=== PATIENT | female | born 1975 | race Caucasian/White ===

== ENCOUNTER 2017-01-29 15:08 | Inpatient (IN) | payer BC ==
[~2017-01-29] VITALS: Ht 167.6 cm; Wt 91.6 kg
[~2017-01-29 15:08] MED LIST: PREN0.01 PO; PROBCAP4 PO; SENN1TAB11 PO; SLOW50TA PO; VITA-13; VITA100017 PO
[2017-02-13] MEDS ORDERED: EPIDURAL-DIPHENHYDRAMINE HCL 50 MG CAP PO PRN (07:25)
[2017-02-13] MEDS ORDERED: EPIDURAL-NO SYSTEMIC NARCOTICS XX PRN (07:25)
[2017-02-13] MEDS ORDERED: EPIDURAL-NALOXONE HCL 0.4 MG/ML AMP IV PRN (07:25)
[2017-02-13] MEDS ORDERED: EPIDURAL-DO NOT ADMINISTER ANTICOAGULANTS XX PRN (07:25)
[2017-02-13] MEDS ORDERED: EPIDURAL-DIPHENHYDRAMINE HCL 50 MG/ML VIAL IV PUSH PRN (07:25)
[2017-02-13] MEDS ORDERED: LACTATED RINGER'S 1000 ML IV SCH (10:00)
[2017-02-13] MEDS ORDERED: CITRIC ACID-SODIUM CITRATE LIQ 30 ML UDC PO SCH (10:00)
[2017-02-13] MEDS ORDERED: ceFAZolin 2 GM PREMIX 50 ML IV SCH (10:00)
[2017-02-13] MEDS ORDERED: LACTATED RINGER'S 1000 ML IV ONE (10:00)
[2017-02-13 10:16] LABS: AUTOMATED NEUTROPHIL # 7.5 TH/MM3 (1.8-7.7); BASOPHIL % 0.4 % (0.0-2.0); EOSINOPHIL # 0.1 TH/MM3 (0-0.4); EOSINOPHIL % 1.2 % (0.0-4.0); HEMATOCRIT 28.4 % (35.0-46.0); HEMO FLAGS DIFF FINAL; LYMPH % 17.8 % (9.0-44.0); LYMPHOCYTE # 1.8 TH/MM3 (1.0-4.8); MEAN CELL VOLUME 84.1 FL (80.0-100.0); MEAN CORPUSCULAR HEMOGLOBIN 27.3 PG (27.0-34.0); MEAN CORPUSCULAR HGB CONC 32.5 % (32.0-36.0); MONO % 8.1 % (0.0-8.0); NEUT % 72.5 % (16.0-70.0); PLATELET COUNT 254 TH/MM3 (150-450); RED BLOOD COUNT 3.38 MIL/MM3 (4.00-5.30); RED CELL DISTRIBUTION WIDTH 17.2 % (11.6-17.2); WHITE BLOOD COUNT 10.4 TH/MM3 (4.0-11.0)
[2017-02-13 10:31] LABS: BACTERIA, URINE MOD /hpf; BLOOD, URINE NEG (NEG); CALCIUM OXALATE CRYSTALS,URINE MOD /hpf; GLUCOSE,URINE NEG (NEG); HYALINE CAST, URINE 2 /lpf (RARE); KETONE, URINE NEG (NEG); MUCUS URINE FEW /lpf (OCC); NITRITE,URINE NEG (NEG); SQUAMOUS EPITHELIAL CELL URINE 48 /hpf (0-5); TRANSITIONAL EPI CELLS, URINE <1 /hpf; URINE COLOR YELLOW (YELLW/STRAW)
[2017-02-13 10:40] LABS: COMMENT (UR) CULTURE INDICATED; CULTURE IF INDICATED CULTURE INDICATED
[2017-02-13] MEDS ORDERED: OXYTOCIN 10 UNIT/ML AMP ONE (11:15)
[2017-02-13] MEDS ORDERED: DICLOFENAC SODIUM 37.5 MG/ML VIAL IV PUSH ONE (11:15)
[2017-02-13 12:09] LABS: BLOOD GAS BASE EXCESS -0.1 mmol/L (-2-2); BLOOD GAS O2 HGB SATURATION 13 % (90-100); CORD BLOOD GAS HCO3 26 mmol/L (21-29); CORD BLOOD GAS PCO2 57 mmHG (34-78); CORD BLOOD GAS PH 7.28 (7.14-7.42); CORD BLOOD GAS PO2 12 mmHG (3.0-40.0); DRAW SITE CORD BLOOD; STAT NO
--- NOTE | 2017-02-13 12:54 | PD.OB.DELI ---
Procedure Note Section Procedure Performed by Ry Natarajan Procedure: Repeat Low Transverse Sec Indication for delivery: Desired elective repeat , malposition Informed consent obtained: For anesthesia, For procedure Confirmed correct: Patient, Procedure, Site, Time-out taken Anesthesia: Spinal Medication prior to procedure: As documented in eMAR Monitoring during procedure: Blood pressure monitoring, electronic device monitor, doppler, Pulse oximetry Urinary catheter: Inserted using sterile technique, To dependent drainage Sterile preparation: Duraprep Position: Supine with wedge to right side, Supine with safety belt applied Operative Features Skin Incision: Pfannenstiel Uterine Incision: J-shaped Membranes Ruptured: Artificially Presentation: Transverse lie (unstable,small parts down) Delivery of infant: Assisted (internal cephalic version,vacuum x1 pull) : Female One Minute : 1 Five Minute : 8 Status of infant: Viable, Cord blood, Umbilical cord (Cord ABG pH 7.28), Nursery present, Resuscitation required Placenta delivered: Intact Medications: Antibiotics, Oxytocin Estimated blood loss: 1000cc Procedure tolerated: Well Maternal Condition: Stable Baby Complications: Respiratory distress, Other (difficult delivery due to unstable position) Condition: Stable Ry Natarajan MD Feb 13, 2017 12:54
[2017-02-13] MEDS ORDERED: MORPHINE SULFATE PF 5 MG/10 ML VIAL ONE (12:56)
[2017-02-13] MEDS ORDERED: ONDANSETRON HCL 4 MG/2 ML VIAL IV PUSH PRN (13:00)
[2017-02-13] MEDS ORDERED: KETOROLAC TROMETHAMINE 60 MG/2 ML (IM) VIAL IM PRN (13:00)
[2017-02-13] MEDS ORDERED: oxyCODONE/ACETAMINOPHEN 5 MG/325 MG TAB PO PRN (13:00)
[2017-02-13] MEDS ORDERED: OXYTOCIN 30 UNITS-500ML PREMIX 500 ML IV ONE (13:00)
[2017-02-13] MEDS ORDERED: SODIUM CHLORIDE 0.9% FLUSH 5 ML FLUSH IV FLUSH PRN (13:00)
[2017-02-13] MEDS ORDERED: ACETAMINOPHEN 1000 MG/100 ML VIAL IV ONE ×2 (13:08→14:00)
[2017-02-13] MEDS ORDERED: DEXAMETHASONE SOD PHOS 4 MG/ML VIAL IV ONE (13:32)
[2017-02-13] MEDS ORDERED: ONDANSETRON HCL 4 MG/2 ML VIAL IV PUSH ONE (13:32)
[2017-02-13] MEDS ORDERED: fentaNYL CITRATE 250 MCG/5 ML AMP IV ONE (13:32)
[2017-02-13 13:42] LABS: HEMATOCRIT 24.1 % (35.0-46.0); MEAN CELL VOLUME 84.1 FL (80.0-100.0); MEAN CORPUSCULAR HEMOGLOBIN 27.4 PG (27.0-34.0); MEAN CORPUSCULAR HGB CONC 32.6 % (32.0-36.0); PLATELET COUNT 224 TH/MM3 (150-450); RED BLOOD COUNT 2.87 MIL/MM3 (4.00-5.30); RED CELL DISTRIBUTION WIDTH 17.3 % (11.6-17.2); REVIEW FLAG FINAL; WHITE BLOOD COUNT 11.9 TH/MM3 (4.0-11.0)
[2017-02-13 14:45] VITALS: BP 118/74; PULSE 99; RESP 16; TEMP 97.3
[2017-02-13] MEDS: DOCUSATE SODIUM 50 MG/SENNA 8.6 MG TAB PO PRN (20:40)
[2017-02-13] MEDS: SODIUM CHLORIDE 0.9% FLUSH 10 ML FLUSH IV FLUSH SCH (20:40)
[2017-02-13] MEDS: LACTATED RINGER'S 1000 ML INJ 1,000 ML IV SCH (20:42)
[2017-02-13] MEDS: oxyCODONE/ACETAMINOPHEN 5 MG/325 MG TAB PO PRN (20:42)
[2017-02-13] MEDS ORDERED: OXYTOCIN 30 UNITS-500ML PREMIX 500 ML IV PRN (23:00)
[2017-02-14] MEDS: oxyCODONE/ACETAMINOPHEN 5 MG/325 MG TAB PO PRN ×3 (02:16→22:43)
[2017-02-14] MEDS: LACTATED RINGER'S 1000 ML INJ 1,000 ML IV SCH (03:54)
[2017-02-14 06:13] LABS: AUTOMATED NEUTROPHIL # 10.2 TH/MM3 (1.8-7.7); BASOPHIL % 0.3 % (0.0-2.0); EOSINOPHIL # 0.1 TH/MM3 (0-0.4); EOSINOPHIL % 0.5 % (0.0-4.0); HEMATOCRIT 21.9 % (35.0-46.0); HEMO FLAGS DIFF FINAL; LYMPH % 14.6 % (9.0-44.0); LYMPHOCYTE # 1.9 TH/MM3 (1.0-4.8); MEAN CELL VOLUME 83.2 FL (80.0-100.0); MEAN CORPUSCULAR HEMOGLOBIN 27.8 PG (27.0-34.0); MEAN CORPUSCULAR HGB CONC 33.4 % (32.0-36.0); MONO % 7.2 % (0.0-8.0); NEUT % 77.4 % (16.0-70.0); PLATELET COUNT 198 TH/MM3 (150-450); RED BLOOD COUNT 2.63 MIL/MM3 (4.00-5.30); RED CELL DISTRIBUTION WIDTH 17.5 % (11.6-17.2); WHITE BLOOD COUNT 13.2 TH/MM3 (4.0-11.0)
[2017-02-14 07:36] VITALS: BP 126/81; PULSE 83; RESP 16; TEMP 97.6
--- NOTE | 2017-02-14 08:35 | HHI.OB ---
Subjective Post Operative Day: 1 Remarks doing well, will start iron po TID Objective Vitals/I&O Vital Signs Date Time Temp Pulse Resp B/P Pulse Ox O2 Delivery O2 Flow Rate FiO2 02/14/17 07:36 97.6 83 16 126/81 02/13/17 14:45 97.3 99 16 118/74 Result Diagram: 02/14/17 0502 Objective Remarks GENERAL: Well-nourished, well-developed patient. CARDIOVASCULAR: Regular rate and rhythm without murmurs, gallops, or rubs. RESPIRATORY: Breath sounds equal bilaterally. No accessory muscle use. ABDOMEN/GI: Abdomen soft, non-tender, bowel sounds present. Incision: dressing Clean, dry and intact. Fundus: Firm, non-tender at umbilicus. GENITOURINARY: Light to moderate bleeding. EXTREMITIES: No cyanosis or edema, non-tender, without signs of DVT. Medications and IVs Current Medications Medications (Trade) Dose Ordered Sig/Sunni Route Start Time Stop Time Status Last Admin (Lr 1000 ml Inj) 1,000 ml @ 100 mls/hr Q10H IV 02/13/17 17:54 02/14/17 13:53 02/13/17 20:42 (NS Flush) 2 ml BID IV FLUSH 02/13/17 13:00 (NS Flush) 2 ml UNSCH PRN IV FLUSH 02/13/17 13:00 (Mylicon Chew) 80 mg QID PRN PO 02/13/17 13:00 (Toradol Inj) 30 mg Q6H PRN IM 02/13/17 13:00 02/14/17 12:59 (Percocet 5-325 Mg) 1 tab Q4H PRN PO 02/13/17 13:00 02/14/17 02:16 (Percocet 5-325 Mg) 2 tab Q4H PRN PO 02/13/17 13:00 (Edel-Colace) 2 tab Q12H PRN PO 02/13/17 13:00 02/13/17 20:40 (M-M-R Ii Inj) 0.5 ml ONCE ONCE SQ 02/14/17 16:00 02/14/17 16:01 (Boostrix Inj) 0.5 ml ONCE ONCE IM 02/14/17 16:00 02/14/17 16:01 (Zofran Inj) 4 mg Q6H PRN IV PUSH 02/13/17 13:00 Assessment/Plan Problem List: (1) S/P repeat low transverse Assessment and Plan POD#1 s/o repeat LSTC, anemic pt wants oral iron supplement no dizziness Discharge Planning routine Attending Attestation pt seen by Marianna Dixon MD Feb 14, 2017 08:35
--- NOTE | 2017-02-14 08:57 | HHI.DS ---
Admission Date Feb 13, 2017 at 08:55 Admitting Diagnosis Diagnosis: : Repeat Reason: Repeat, malpresentation : Female Pt Condition on Discharge: Good Discharge Disposition: Discharge Home Discharge Instructions Diet Instructions: As Tolerated, No Restrictions Activities You Can Perform: Shower Only-No Bath Activities to Avoid: Prolonged Standing, Strenuous Activity, Driving, Sexual Activity Ry Natarajan MD Feb 14, 2017 08:57
[2017-02-14] MEDS: DOCUSATE SODIUM 50 MG/SENNA 8.6 MG TAB PO PRN (13:06)
[2017-02-14] MEDS: IBUPROFEN 600 MG TAB PO PRN ×2 (13:07→22:42)
--- NOTE | 2017-02-14 13:28 | MP ---
cc: RY STEELE M.D. DATE OF SURGERY 02/13/2017 PREOPERATIVE DIAGNOSIS Term anterior , history of previous section for elective repeat section, unstable presentation at term, history of large for gestational age , grand multiparous patient, advanced maternal age. PROCEDURE Repeat low transverse section, internal cephalic version delivery of viable female infant. POSTOPERATIVE DIAGNOSIS Term anterior , history of previous section for elective repeat section, unstable presentation at term, history of large for gestational age infant, grand multiparous patient, advanced maternal age. SURGEON Ry Steele MD ANESTHESIA General ESTIMATED BLOOD LOSS 1000 cc DRAINS Mtz to gravity OPERATIVE FINDINGS Female infant was delivered with the aid of the internal cephalic version due to unstable lie, difficulty in delivery, required version from transverse to vertex and a vacuum extractor was used. Baby 's were 1 at one minute and 8 at five minutes. Cord blood gas was obtained. Cord pH was 7.28. INDICATION FOR THE PROCEDURE Patient with a known history of unstable presentation, a previous section, elected for repeat section. PROCEDURE The patient received Ancef 2 grams prophylactically. She underwent spinal anesthetic without complication. She was prepped and draped. Mtz catheter WAS inserted by sterile technique. After she was prepped and draped, time-out was conducted, agreed by all present in the room. The patient had excellent pain control throughout. The previous Pfannenstiel incision was utilized. A #10 blade was used to make a transverse incision just above the pubic symphysis through the previous scar through the subcutaneous layer of the fascia. The fascia was scored in the midline and extended laterally by a combination of sharp dissection and electrocautery. The rectus muscles were in the midline. The peritoneum was identified and opened sharply. A transverse incision was made in the lower uterine segment with clear fluid noted immediately. The incision was extended bluntly and initial vertex was palpated and shifted away from the pelvis. Internal evaluation revealed a partial breech with the right upper extremity presenting through the incision. This required manipulation to rotate the baby to vertex. Once the infant was rotated to vertex, a vacuum was applied and the infant was delivered in total. A small incision was made to extend the uterine incision on the patient's left aspect of the uterine incision. The infant cord was doubly clamped and cut and the was taken to the isolette by the NICU staff. NICU was present. A cord segment was obtained for cord blood gas. A cord sample was obtained for typing. The placenta was removed intact. The uterus was exteriorized. Examination of the uterine cavity was clear. There was no retained tissue. Closure was in a multilayer fashion using a #1 Vicryl suture in a running locking fashion with a second imbricating suture. The extension on the left side as a J-extension was closed with a simple running suture of 0 Monocryl. Good hemostasis was noted. The uterus was returned to its normal anatomic position. Examination of the incision was clean. No active bleeding or hematoma. Irrigation of the pelvis was required and then all free blood and clots removed. A full count was made and correct. The peritoneum was closed with a simple running suture of 2-0 Monocryl. The transverse incision was made on the left belly of the rectus muscle and this was reapproximated using a simple mattress suture of 0 Monocryl to reapproximate the muscle edges. The fascia was then closed with 0 Vicryl starting from each angle and suturing towards the midline with good result. Good integrity of the incision was noted. The subcutaneous layer was irrigated. Any small bleeders were cauterized and then 2-0 Monocryl was used to close the space. Yaya were used to close the skin. A pressure dressing was applied. Final count was correct. The patient was stable. The infant was taken to the NICU for observation and was stable. MD WINIFRED Vela/ARIANNA /1:00 PM /1:18 PM
[2017-02-14] MEDS ORDERED: MEASLES, MUMPS, RUBELLA VACCINE 0.5 ML VIAL SQ ONE (16:00)
[2017-02-14] MEDS ORDERED: DIPHTH/TETANUS/ACEL PERTUSSIS (BOOSTER) 0.5 ML VIAL/PFS IM ONE (16:00)
[2017-02-14 19:39] VITALS: BP 132/75; PULSE 94; RESP 20; TEMP 98.5
[2017-02-14] MEDS: SODIUM CHLORIDE 0.9% FLUSH 10 ML FLUSH IV FLUSH SCH (21:00)
[2017-02-14] MEDS: POLYSACCHARIDE IRON COMPLEX 150 MG CAP PO SCH (22:42)
[2017-02-14] MEDS: SIMETHICONE 80 MG CHEWABLE TAB PO PRN (22:43)
[2017-02-15] MEDS: SIMETHICONE 80 MG CHEWABLE TAB PO PRN ×3 (06:08→20:44)
[2017-02-15] MEDS: oxyCODONE/ACETAMINOPHEN 5 MG/325 MG TAB PO PRN ×3 (06:08→20:44)
[2017-02-15] MEDS: DOCUSATE SODIUM 50 MG/SENNA 8.6 MG TAB PO PRN ×2 (06:08→20:44)
[2017-02-15] MEDS: IBUPROFEN 600 MG TAB PO PRN ×3 (06:08→20:44)
[2017-02-15 06:17] LABS: REVIEW FLAG FINAL
[2017-02-15 06:20] LABS: HEMATOCRIT 20.8 % (35.0-46.0)
--- NOTE | 2017-02-15 09:03 | HHI.OB ---
Subjective Post Operative Day: 2 Remarks Doing well POD 2 repeat section with difficult removal of quite anemic but she does not feel poorly and ambulating and caring for self and baby well IV is out Objective Vitals/I&O Vital Signs Date Time Temp Pulse Resp B/P Pulse Ox O2 Delivery O2 Flow Rate FiO2 02/14/17 19:39 98.5 94 20 132/75 Result Diagram: 02/15/17 0530 Objective Remarks GENERAL: Well-nourished, well-developed patient. CARDIOVASCULAR: Regular rate and rhythm without murmurs, gallops, or rubs. RESPIRATORY: Breath sounds equal bilaterally. No accessory muscle use. ABDOMEN/GI: Abdomen soft, non-tender, bowel sounds present. Incision: dressing Clean, dry and intact. Fundus: Firm, non-tender at umbilicus. GENITOURINARY: Light to moderate bleeding. EXTREMITIES: No cyanosis or edema, non-tender, without signs of DVT. Medications and IVs Current Medications Medications (Trade) Dose Ordered Sig/Sunni Route Start Time Stop Time Status Last Admin (NS Flush) 2 ml BID IV FLUSH 02/13/17 13:00 (NS Flush) 2 ml UNSCH PRN IV FLUSH 02/13/17 13:00 (Mylicon Chew) 80 mg QID PRN PO 02/13/17 13:00 02/15/17 06:08 (Percocet 5-325 Mg) 1 tab Q4H PRN PO 02/13/17 13:00 02/15/17 06:08 (Percocet 5-325 Mg) 2 tab Q4H PRN PO 02/13/17 13:00 (Edel-Colace) 2 tab Q12H PRN PO 02/13/17 13:00 02/15/17 06:08 (Zofran Inj) 4 mg Q6H PRN IV PUSH 02/13/17 13:00 (Nu-Iron) 150 mg Q12HR PO 02/14/17 09:00 02/14/17 22:42 (Motrin) 600 mg Q6H PRN PO 02/14/17 08:45 02/15/17 06:08 Assessment/Plan Problem List: (1) S/P repeat low transverse Assessment and Plan POD#2 s/o repeat LSTC, anemic pt wants oral iron supplement no dizziness discharge in am Discharge Planning routine Carbiener,Danitza Ida MD Feb 15, 2017 09:03
[2017-02-15] MEDS: POLYSACCHARIDE IRON COMPLEX 150 MG CAP PO SCH ×2 (09:35→20:44)
[2017-02-15 10:31] VITALS: BP 134/70; PULSE 72; RESP 18; TEMP 98.9
[2017-02-15 20:00] VITALS: BP 142/85; PULSE 88; RESP 18; TEMP 98.4
[2017-02-15 21:58] VITALS: BP 135/83; PULSE 88
[2017-02-16] MEDS: oxyCODONE/ACETAMINOPHEN 5 MG/325 MG TAB PO PRN ×2 (00:36→04:43)
[2017-02-16] MEDS: SIMETHICONE 80 MG CHEWABLE TAB PO PRN (04:43)
[2017-02-16] MEDS: IBUPROFEN 600 MG TAB PO PRN (04:43)
[2017-02-16 08:00] VITALS: BP 144/79; PULSE 85; RESP 18; TEMP 98.2
[2017-02-16] MEDS: POLYSACCHARIDE IRON COMPLEX 150 MG CAP PO SCH (08:05)
--- NOTE | 2017-02-16 10:40 | HHI.OB ---
Subjective Post Operative Day: 3 Remarks doing well ready for discharge will take oral iron Objective Vitals/I&O Vital Signs Date Time Temp Pulse Resp B/P Pulse Ox O2 Delivery O2 Flow Rate FiO2 02/16/17 08:00 98.2 85 18 144/79 02/15/17 21:58 88 02/15/17 21:58 135/83 02/15/17 20:00 98.4 88 18 142/85 02/15/17 13:50 16 02/15/17 13:50 16 Result Diagram: 02/15/17 0530 Objective Remarks GENERAL: Well-nourished, well-developed patient. CARDIOVASCULAR: Regular rate and rhythm without murmurs, gallops, or rubs. RESPIRATORY: Breath sounds equal bilaterally. No accessory muscle use. ABDOMEN/GI: Abdomen soft, non-tender, bowel sounds present. Incision: dressing Clean, dry and intact. Fundus: Firm, non-tender at umbilicus. GENITOURINARY: Light to moderate bleeding. EXTREMITIES: No cyanosis or edema, non-tender, without signs of DVT. Medications and IVs Current Medications Medications (Trade) Dose Ordered Sig/Sunni Route Start Time Stop Time Status Last Admin (NS Flush) 2 ml BID IV FLUSH 02/13/17 13:00 (NS Flush) 2 ml UNSCH PRN IV FLUSH 02/13/17 13:00 (Mylicon Chew) 80 mg QID PRN PO 02/13/17 13:00 02/16/17 04:43 (Percocet 5-325 Mg) 1 tab Q4H PRN PO 02/13/17 13:00 02/16/17 04:43 (Percocet 5-325 Mg) 2 tab Q4H PRN PO 02/13/17 13:00 (Edel-Colace) 2 tab Q12H PRN PO 02/13/17 13:00 02/15/17 20:44 (Zofran Inj) 4 mg Q6H PRN IV PUSH 02/13/17 13:00 (Nu-Iron) 150 mg Q12HR PO 02/14/17 09:00 02/16/17 08:05 (Motrin) 600 mg Q6H PRN PO 02/14/17 08:45 02/16/17 04:43 Assessment/Plan Problem List: (1) S/P repeat low transverse Assessment and Plan POD#3 s/o repeat LSTC, anemic pt wants oral iron supplement no dizziness discharge in am Discharge Planning routine Danitza Booth MD Feb 16, 2017 10:39
[2017-02-16] MEDS ORDERED: OXYC1TAB63 PO (10:41)
== END 2017-02-16 11:18 | disposition home or self-care (01) | DRG 766 ==
LOC: H2EB 02-13 08:55 → H1EA 02-13 14:10
PROVIDERS: ADMIT Obstetrics & Gynecology; ATTEND Obstetrics & Gynecology
PROC: 10D00Z1 Extraction of Products of Conception, Low, Open Approach (ICD-10-PCS; principal; 2017-02-13)
DX: O32.0XX0 Maternal care for unstable lie, not applicable or unspecified (principal); D64.9 Anemia, unspecified; Z37.0 Single live birth; O99.02 Anemia complicating childbirth; O34.211 Maternal care for low transverse scar from previous cesarean delivery; O09.529 Supervision of elderly multigravida, unspecified trimester; Z3A.40 40 weeks gestation of pregnancy
CPT/HCPCS: 59025; 81001; 82805; 85014; 85018; 85025; 85027; 86403; 86850; 86900; 86901; 87086; J0131; J0690; J1100; J1130; J2274; J2405; J2590; J3010; J7120